=== PATIENT | female | born 1955 | race Caucasian/White ===

== ENCOUNTER 2018-05-14 08:13 | Inpatient (IN) | payer OTHER ==
[~2018-05-14] VITALS: Ht 152.4 cm; Wt 61.4 kg
[~2018-05-14 08:13] MED LIST: ALBU1AER9; HYDUNK; PROM25TA PO; TIOTCAP INH; ZCRUNK
[2018-05-14] MEDS ORDERED: ALBUT/IPRATROP 3MG/0.5MG NEB 3 ML VIAL INH STA ×3 (08:31→09:54)
[2018-05-14] MEDS ORDERED: METHYLPREDNISOLONE 125 MG VIAL IV STA (08:31)
[2018-05-14 08:42] LABS: BASO % 0.2 %; BASO ABS # 0.03 K/uL (0-0.2); EOS % 0.3 %; EOS ABS # 0.04 K/uL (0-0.5); HEMATOCRIT 47.1 % (37-47); IG# 0.04 K/uL (0.00-0.02); LYMPH % 9.1 %; LYMPH ABS # 1.34 K/uL (1.2-3.4); MEAN CELL VOLUME 93.3 fL (80-100); MEAN CORPUSCULAR HEMOGLOBIN 31.7 pg (25-34); MEAN PLATELET VOLUME 10.1 fL (7.4-10.4); MONO % 6.6 %; MONO ABS # 0.97 K/uL (0.11-0.59); NEUT % 83.5 %; NEUT ABS # 12.35 K/uL (1.4-6.5); PLATELET COUNT 200 K/uL (130-400); RED CELL DISTRIBUTION WIDTH CV 13.1 % (11.5-14.5); RED CELL DISTRIBUTION WIDTH SD 44.7 fL (36.4-46.3); WHITE BLOOD COUNT 14.77 K/uL (4.8-10.8)
--- NOTE | 2018-05-14 08:59 | DIAGNOSTIC IMAGING REPORT ---
CHEST ONE VIEW PORTABLE CLINICAL HISTORY: EVALUATE RESPIRATORY DISTRESS.DYSPNEA COMPARISON STUDY: No previous studies for comparison. FINDINGS: No significant cardiac enlargement. Diaphragms smooth. Mild bronchovascular prominence. Mild emphysematous change. IMPRESSION: Mild emphysematous change. Mild bronchovascular prominence. No focal infiltrate. The above report was generated using voice recognition software. It may contain grammatical, syntax or spelling errors. Electronically signed by: Mick Drake M.D. 05/14/2018 8:58 AM Dictated Date/Time: 05/14/2018 8:57 AM
[2018-05-14 09:05] LABS: ALBUMIN 4.2 gm/dl (3.4-5.0); ALKALINE PHOSPHATASE 107 U/L (45-117); ALT/SGPT 24 U/L (12-78); AST/SGOT 30 U/L (15-37); BLOOD UREA NITROGEN 9 mg/dl (7-18); CALCIUM 9.4 mg/dl (8.5-10.1); CARBON DIOXIDE 51 mmol/L (21-32); CREATININE 0.47 mg/dl (0.60-1.20); GLUCOSE 122 mg/dl (70-99); POTASSIUM 3.5 mmol/L (3.5-5.1); SODIUM 140 mmol/L (136-145); TOTAL PROTEIN 7.9 gm/dl (6.4-8.2)
[2018-05-14] MEDS ORDERED: VNTHFA/IN INH (09:23)
[2018-05-14] MEDS ORDERED: ATOR10TA82 PO (09:23)
[2018-05-14] MEDS ORDERED: IPRA1AER2 INH (09:23)
[2018-05-14] MEDS ORDERED: SPRIN/30 INH (09:23)
[2018-05-14] MEDS ORDERED: HYDR25TA4 PO (09:23)
[2018-05-14] MEDS ORDERED: CEFTRIAXONE SOD INJ 1 GM ADDVIAL IV STA (09:54)
[2018-05-14 10:00] VITALS: O2SAT 96; Ht 152.4 cm; Wt 61.4 kg
--- NOTE | 2018-05-14 10:57 | History and Physical ---
History & Physical Date & Time of Service: May 14, 2018 at 10:57 Chief Complaint: Respiratory Distress Primary Care Physician: No Doctor, Assigned History of Present Illness Source: patient 62 yo female who came in the hospital with a week long history of worsening SOB on exertion and at rest. This is accompanied by productive white sputum, subjective fever, and chills. Patient reports that over course of past few days her shortness of breath has worsened. The patient states that she wears 3.5 L of oxygen and has a history of COPD. She states that she has smoked 1-2 ppd for decades but recently has been cutting back. She is currently on the first few days of the nicotine patch. She states that she in non compliant with her medicine and she does not have a PCP. She goes to [facility] on [address] and she only picks up her cholesterol meds and blood pressure meds. Patient reports that she has sick contacts, because someone at home is always sick. Her family is also concerned about her left breast which has an inverted nipple and they mention that they feel something there. They would like this to get looked at. Family also notices that patient has a decreased appetite and has had unintentional weight loss. Past Medical/Surgical History Medical Problems: (1) Asthma (2) COPD (chronic obstructive pulmonary disease) (3) Emphysema lung Family History Cancer Diabetes mellitus FH: breast cancer Gallbladder disease Heart disease Hypertension Social History Smoking Status: Former Smoker Housing status: lives alone Immunizations History of Influenza Vaccine: Unknown History of Tetanus Vaccine?: Unknown History of Pneumococcal: Unknown History of Hepatitis B Vaccine: Unknown Allergies Coded Allergies: Penicillins (Verified Allergy, Unknown, ., 05/15/18) Home Medications Scheduled Atorvastatin (Lipitor), 10 MG PO DAILY Doxycycline Hyclate (Doxycycline Hyclate), 100 MG PO BID Hydrochlorothiazide (Hctz), 25 MG PO DAILY Nicotine (Nicoderm Cq 7 Mg Patch), 7 MG TD DAILY Nicotine (Nicoderm Cq 14MG Patch), 1 PATCH TD DAILY Prednisone (Prednisone), 40 MG PO DAILY Tiotropium [place] (Spiriva Handihaler), 1 CAP INH DAILY Scheduled PRN Albuterol Hfa (Ventolin Hfa), 2-4 PUFFS INH QID PRN for SOB/Wheezing Guaifenesin-Codeine (Codeine/Guaifenesin 100-10 mg/5Ml), 10 ML PO Q6 PRN for Cough Ipratropium-Albuterol (Combivent Respimat), 1 PUFFS INH QID PRN for Shortness of Breath Review of Systems Constitutional: + fever Eyes: No worsening of vision ENT: No hearing loss Respiratory: + cough, + sputum, + wheezing Cardiovascular: No chest pain Abdomen: No pain Musculoskeletal: No joint pain Genitourinary - Female: No dysuria Neurologic: No memory loss Psychiatric: No depression symptoms Endocrine: + fatigue Hematologic / Lymphatic: No abnormal bleeding/bruising Integumentary: No rash Allergic / Immunologic: No environmental allergies Physical Exam Vital Signs Date Time Temp Pulse Resp B/P (MAP) Pulse Ox O2 Delivery O2 Flow Rate FiO2 05/14/18 10:01 114 20 148/69 99 Nebulizer 05/14/18 10:00 96 Nasal Cannula 3.0 05/14/18 09:14 112 20 147/79 99 Nebulizer 05/14/18 08:55 107 20 153/71 100 Room Air 05/14/18 08:46 111 05/14/18 08:39 96 Nasal Cannula 3.0 05/14/18 08:23 89 Room Air 05/14/18 08:23 36.9 113 22 159/79 89 Room Air 05/14/18 08:23 89 Room Air General Appearance: WD/WN, no apparent distress, + pertinent finding (oon nasal cannula) Head: normocephalic, atraumatic Eyes: normal inspection ENT: normal ENT inspection Neck: supple, no adenopathy Respiratory/Chest: chest non-tender, + decreased breath sounds, + accessory muscle use, + pertinent finding (Left breast has a palpable mass which is significant, takes about half of breast, with inverted nipple.) Cardiovascular: no edema, no murmur, + tachycardia Abdomen/GI: normal bowel sounds, non tender, soft Back: normal inspection, no muscle spasm Extremities/Musculoskelatal: normal inspection, no calf tenderness Neurologic/Psych: alert, oriented x 3 Skin: normal color Diagnostics Laboratory Results Results Past 24 Hours Test 05/14/18 08:20 05/14/18 09:05 05/14/18 09:20 Range/Units White Blood Count 14.77 4.8-10.8 K/uL Red Blood Count 5.05 4.2-5.4 M/uL Hemoglobin 16.0 12.0-16.0 g/dL Hematocrit 47.1 37-47 % Mean Corpuscular Volume 93.3 80-100 fL Mean Corpuscular Hemoglobin 31.7 25-34 pg Mean Corpuscular Hemoglobin Concent 34.0 32-36 g/dl Platelet Count 200 130-400 K/uL Mean Platelet Volume 10.1 7.4-10.4 fL Neutrophils (%) (Auto) 83.5 % Lymphocytes (%) (Auto) 9.1 % Monocytes (%) (Auto) 6.6 % Eosinophils (%) (Auto) 0.3 % Basophils (%) (Auto) 0.2 % Neutrophils # (Auto) 12.35 1.4-6.5 K/uL Lymphocytes # (Auto) 1.34 1.2-3.4 K/uL Monocytes # (Auto) 0.97 0.11-0.59 K/uL Eosinophils # (Auto) 0.04 0-0.5 K/uL Basophils # (Auto) 0.03 0-0.2 K/uL RDW Standard Deviation 44.7 36.4-46.3 fL RDW Coefficient of Variation 13.1 11.5-14.5 % Immature Granulocyte % (Auto) 0.3 % Immature Granulocyte # (Auto) 0.04 0.00-0.02 K/uL Sodium Level 140 136-145 mmol/L Potassium Level 3.5 3.5-5.1 mmol/L Chloride Level 89 98-107 mmol/L Carbon Dioxide Level 51 21-32 mmol/L Anion Gap -1.0 3-11 mmol/L Blood Urea Nitrogen 9 7-18 mg/dl Creatinine 0.47 0.60-1.20 mg/dl Est Creatinine Clear Calc Drug Dose 97.9 ml/min Estimated GFR () 121.0 Estimated GFR (Non- 104.4 BUN/Creatinine Ratio 19.6 10-20 Random Glucose 122 70-99 mg/dl Calcium Level 9.4 8.5-10.1 mg/dl Total Bilirubin 0.6 0.2-1 mg/dl Aspartate Amino Transf (AST/SGOT) 30 15-37 U/L Alanine Aminotransferase (ALT/SGPT) 24 12-78 U/L Alkaline Phosphatase 107 45-117 U/L Total Creatine Kinase 130 26-192 U/L Creatine Kinase MB 5.0 0.5-3.6 ng/ml Creatine Kinase MB Ratio 3.8 0-3.0 Troponin I < 0.015 0-0.045 ng/ml Pro-B-Type Natriuretic Peptide 83 0-900 pg/ml Total Protein 7.9 6.4-8.2 gm/dl Albumin 4.2 3.4-5.0 gm/dl Globulin 3.7 2.5-4.0 gm/dl Albumin/Globulin Ratio 1.1 0.9-2 Urine Color YELLOW Urine Appearance TURBID CLEAR Urine pH 7.5 4.5-7.5 Urine Specific [place] 1.014 1.000-1.030 Urine Protein TRACE NEG Urine Glucose (UA) NEG NEG Urine Ketones 2+ NEG Urine Occult Blood TRACE NEG Urine Nitrite POS NEG Urine Bilirubin NEG NEG Urine Urobilinogen NEG NEG Urine Leukocyte Esterase MODERATE NEG Urine WBC (Auto) >30 0-5 /hpf Urine RBC (Auto) 0-4 0-4 /hpf Urine Hyaline Casts (Auto) 5-10 0-5 /lpf Urine Epithelial Cells (Auto) >30 0-5 /lpf Urine Bacteria (Auto) 4+ NEG Venous Blood pH 7.32 7.36-7.41 Venous Blood Partial Pressure CO2 102 38.0-50.0 mmHg Venous Blood Partial Pressure O2 71 mmHg Venous Blood HCO3 51 mmol/L Venous Blood Oxygen Saturation 93.0 % Venous Blood Base Excess 18.8 mEq/L Diagnostic Radiology CHEST ONE VIEW PORTABLE CLINICAL HISTORY: EVALUATE RESPIRATORY DISTRESS.DYSPNEA COMPARISON STUDY: No previous studies for comparison. FINDINGS: No significant cardiac enlargement. Diaphragms smooth. Mild bronchovascular prominence. Mild emphysematous change. IMPRESSION: Mild emphysematous change. Mild bronchovascular prominence. No focal infiltrate. EKG Sinus tachycardia Otherwise normal ECG No previous ECGs available Confirmed by SHAQUILLE VEE ([id number]) on 05/15/2018 5:53:00 AM Impression Assessment and Plan COPD exacerbation in a 62 yo female who with significant history of smoking and is noncompliant with medicine and does not regularly followup with a PCP. 1. COPD exacerbation Due to QTc, place on doxy and ceftriaxone. on nicotine patch, will start 21 mg of nicotine patches in AM. Will place patient on nebs treatment and long acting beta agonist also will start steroids 2.Left breast mass and weight loss likely malignant will try to obtain ultrasound. will likely consult Dr. Hubbard tomorrow for an opinion Given exam and lack of followup as well as history of weight loss, concern over malignancy likely need breast biopsy. 3. HTN: will cotninue home meds 4. dyslipidemia. will continue home meds. 5. DVT lovenox Advanced Directives Existing Living Will: No Existing Power of Mail Deliverer: No Resuscitation Status VTE Prophylaxis Will order VTE Prophylaxis: Yes
[2018-05-14] MEDS ORDERED: PNEUMOCOCCAL POLYSACCHARIDES 25 MCG/0.5 ML VIAL/SYR IM. ONE (11:45)
[2018-05-14] MEDS ORDERED: DOXYCYCLINE HYCLATE 100 MG CAP PO STA (11:58)
[2018-05-14 13:00] VITALS: BP 155/71; PULSE 108; TEMP 36.7; O2SAT 95
[2018-05-14] MEDS ORDERED: PNEUMOCOCCAL ADMINISTRATION CHARGE ONE (13:45)
[2018-05-14] MEDS ORDERED: DOXYCYCLINE HYCLATE 100 MG CAP PO ONE (14:00)
--- NOTE | 2018-05-14 14:10 | EMERGENCY ROOM VISIT NOTE ---
History Report prepared by Praveen: Yue Ramirez Under the Supervision of: Dr. Chuy Silva M.D. First contact with patient: 08:25 Chief Complaint: SHORTNESS OF BREATH Stated Complaint: RESPIRATORY DISTRESS Nursing Triage Summary: patient reports she has a hx of COPD. I have not been taking my meds for the past several weeks. breathing has been more difficult. patient given a duoneb enroute History of Present Illness The patient is a 62 year old female who presents to the Emergency Room with complaints of shortness of breath beginning 2 days ago. The patient states that she wears 3.5 L of oxygen and has a history of breathing problems. The patient reports wearing a nicotine patch and she states that she has not had a cigarette in a while. The patient states that she uses nebulizers but that she ran out of her medications a couple of weeks ago. She states that she normally uses her nebulizer 4 times per day. She reports that she has been unable to lay flat for a couple of weeks secondary to her shortness of breath. The patient denies a history of hypertension but reports a history of COPD, emphysema, and asthma. She states that she takes hydrochlorothiazide but that she has not taken it in a couple of months. The patient reports that she has an appointment coming up on May 30 with her [facility] physician. Pt denies LOC, headache, nausea, vomiting, abdominal pain, back pain, or other complaints. Source of History: patient Onset: 2 days ago Position: chest Quality: other (shortness of breath ) Modifying Factors (Worsening): other (laying flat) Associated Symptoms: No nausea Review of Systems See HPI for pertinent positives and negatives. A total of ten systems were reviewed and were otherwise negative. Past Medical & Surgical Medical Problems: (1) Asthma (2) COPD (chronic obstructive pulmonary disease) (3) COPD exacerbation (4) Emphysema lung Family History Cancer Diabetes mellitus FH: breast cancer Gallbladder disease Heart disease Hypertension Social History Smoking Status: Former Smoker Marital Status: Current/Historical Medications Scheduled Atorvastatin (Lipitor), 10 MG PO DAILY Hydrochlorothiazide (Hctz), 25 MG PO DAILY Ipratropium-Albuterol (Combivent Respimat), 1 PUFFS INH QID Tiotropium [place] (Spiriva Handihaler), 1 CAP INH DAILY Scheduled PRN Albuterol Hfa (Ventolin Hfa), 2-4 PUFFS INH QID PRN for SOB/Wheezing Allergies Uncoded Allergies: PCN (Allergy, Unknown, 11/22/02) Physical Exam Vital Signs Date Time Temp Pulse Resp B/P (MAP) Pulse Ox O2 Delivery O2 Flow Rate FiO2 05/14/18 11:09 109 18 130/70 93 Nasal Cannula 3.0 05/14/18 10:01 114 20 148/69 99 Nebulizer 05/14/18 10:00 96 Nasal Cannula 3.0 05/14/18 09:14 112 20 147/79 99 Nebulizer 05/14/18 08:55 107 20 153/71 100 Room Air 05/14/18 08:46 111 05/14/18 08:39 96 Nasal Cannula 3.0 05/14/18 08:23 89 Room Air 05/14/18 08:23 36.9 113 22 159/79 89 Room Air 05/14/18 08:23 89 Room Air Physical Exam GENERAL: Awake, alert, well-appearing, in no distress HENT: Normocephalic, atraumatic. Oropharynx unremarkable. EYES: Normal conjunctiva. Sclera non-icteric. NECK: Supple. No nuchal rigidity. FROM. No masses. RESPIRATORY: Diminished breath sounds throughout. Increased respiratory effort. CARDIAC: Tachycardic rate. Normal rhythm. No murmurs. No rubs. Extremities warm and well perfused. Pulses equal. No JVD. GI: Soft, non-distended. No tenderness to palpation. No rebound or guarding. No masses. RECTAL: Deferred. MUSCULOSKELETAL: Atraumatic. Chest examination reveals no tenderness. The back is symmetrical on inspection without obvious abnormality. There is no CVA tenderness to palpation. No joint edema. LOWER EXTREMITIES: Calves are equal size bilaterally and non-tender. Trace pedal edema. No discoloration. NEURO: Normal sensorium. No sensory or motor deficits noted. SKIN: No rash or jaundice noted. Medical Decision & Procedures ER Provider Diagnostic Interpretation: Radiology results as stated below per my review and radiologist interpretation: CHEST ONE VIEW PORTABLE CLINICAL HISTORY: EVALUATE RESPIRATORY DISTRESS.DYSPNEA COMPARISON STUDY: No previous studies for comparison. FINDINGS: No significant cardiac enlargement. Diaphragms smooth. Mild bronchovascular prominence. Mild emphysematous change. IMPRESSION: Mild emphysematous change. Mild bronchovascular prominence. No focal infiltrate. The above report was generated using voice recognition software. It may contain grammatical, syntax or spelling errors. Electronically signed by: Mick Drake M.D. 05/14/2018 8:58 AM Dictated Date/Time: 05/14/2018 8:57 AM Laboratory Results 05/14/18 08:20 Red Blood Count 5.05, Mean Corpuscular Volume 93.3, Mean Corpuscular Hemoglobin 31.7, Mean Corpuscular Hemoglobin Concent 34.0, Mean Platelet Volume 10.1, Neutrophils (%) (Auto) 83.5, Lymphocytes (%) (Auto) 9.1, Monocytes (%) (Auto) 6.6, Eosinophils (%) (Auto) 0.3, Basophils (%) (Auto) 0.2, Neutrophils # (Auto) 12.35, Lymphocytes # (Auto) 1.34, Monocytes # (Auto) 0.97, Eosinophils # (Auto) 0.04, Basophils # (Auto) 0.03 05/14/18 08:20 Test 05/14/18 08:20 05/14/18 09:05 05/14/18 09:20 White Blood Count 14.77 K/uL (4.8-10.8) Red Blood Count 5.05 M/uL (4.2-5.4) Hemoglobin 16.0 g/dL (12.0-16.0) Hematocrit 47.1 % (37-47) Mean Corpuscular Volume 93.3 fL (80-100) Mean Corpuscular Hemoglobin 31.7 pg (25-34) Mean Corpuscular Hemoglobin Concent 34.0 g/dl (32-36) Platelet Count 200 K/uL (130-400) Mean Platelet Volume 10.1 fL (7.4-10.4) Neutrophils (%) (Auto) 83.5 % Lymphocytes (%) (Auto) 9.1 % Monocytes (%) (Auto) 6.6 % Eosinophils (%) (Auto) 0.3 % Basophils (%) (Auto) 0.2 % Neutrophils # (Auto) 12.35 K/uL (1.4-6.5) Lymphocytes # (Auto) 1.34 K/uL (1.2-3.4) Monocytes # (Auto) 0.97 K/uL (0.11-0.59) Eosinophils # (Auto) 0.04 K/uL (0-0.5) Basophils # (Auto) 0.03 K/uL (0-0.2) RDW Standard Deviation 44.7 fL (36.4-46.3) RDW Coefficient of Variation 13.1 % (11.5-14.5) Immature Granulocyte % (Auto) 0.3 % Immature Granulocyte # (Auto) 0.04 K/uL (0.00-0.02) Anion Gap -1.0 mmol/L (3-11) Est Creatinine Clear Calc Drug Dose 97.9 ml/min Estimated GFR () 121.0 Estimated GFR (Non- 104.4 BUN/Creatinine Ratio 19.6 (10-20) Calcium Level 9.4 mg/dl (8.5-10.1) Total Bilirubin 0.6 mg/dl (0.2-1) Aspartate Amino Transf (AST/SGOT) 30 U/L (15-37) Alanine Aminotransferase (ALT/SGPT) 24 U/L (12-78) Alkaline Phosphatase 107 U/L (45-117) Total Creatine Kinase 130 U/L (26-192) Creatine Kinase MB 5.0 ng/ml (0.5-3.6) Creatine Kinase MB Ratio 3.8 (0-3.0) Troponin I < 0.015 ng/ml (0-0.045) Pro-B-Type Natriuretic Peptide 83 pg/ml (0-900) Total Protein 7.9 gm/dl (6.4-8.2) Albumin 4.2 gm/dl (3.4-5.0) Globulin 3.7 gm/dl (2.5-4.0) Albumin/Globulin Ratio 1.1 (0.9-2) Urine Color YELLOW Urine Appearance TURBID (CLEAR) Urine pH 7.5 (4.5-7.5) Urine Specific [place] 1.014 (1.000-1.030) Urine Protein TRACE (NEG) Urine Glucose (UA) NEG (NEG) Urine Ketones 2+ (NEG) Urine Occult Blood TRACE (NEG) Urine Nitrite POS (NEG) Urine Bilirubin NEG (NEG) Urine Urobilinogen NEG (NEG) Urine Leukocyte Esterase MODERATE (NEG) Urine WBC (Auto) >30 /hpf (0-5) Urine RBC (Auto) 0-4 /hpf (0-4) Urine Hyaline Casts (Auto) 5-10 /lpf (0-5) Urine Epithelial Cells (Auto) >30 /lpf (0-5) Urine Bacteria (Auto) 4+ (NEG) Venous Blood pH 7.32 (7.36-7.41) Venous Blood Partial Pressure CO2 102 mmHg (38.0-50.0) Venous Blood Partial Pressure O2 71 mmHg Venous Blood HCO3 51 mmol/L Venous Blood Oxygen Saturation 93.0 % Venous Blood Base Excess 18.8 mEq/L Laboratory results reviewed by me Medications Administered Medications (Trade) Dose Ordered Sig/Delfin Route Start Time Stop Time Status Last Admin Dose Admin Albuterol/ Ipratropium (Duoneb) 3 ml NOW STAT INH 05/14/18 08:31 05/14/18 08:33 DC 05/14/18 08:56 3 ML Methylprednisolone Sodium Succinate (Solu-Medrol IV) 125 mg NOW STAT IV 05/14/18 08:31 05/14/18 08:33 DC 05/14/18 08:56 125 MG Albuterol/ Ipratropium (Duoneb) 3 ml NOW STAT INH 05/14/18 09:07 05/14/18 09:08 DC 05/14/18 09:14 3 ML Albuterol/ Ipratropium (Duoneb) 3 ml NOW STAT INH 05/14/18 09:54 05/14/18 09:55 DC 05/14/18 10:03 3 ML Ceftriaxone Sodium (Rocephin Inj) 1 gm NOW STAT IV 05/14/18 09:54 05/14/18 09:55 DC 05/14/18 10:04 1 GM ECG Per My Interpretation Indication: SOB/dyspnea Rate (beats per minute): 110 Rhythm: sinus tachycardia Findings: other (no ST elevations, no ST depression, no PACs, no PVCs) ED Course 30: The patient was evaluated in room A2. A complete history and physical exam was performed. 0831: Ordered Methylprednisolone Sodium Succinate 125 mg IV, Duoneb 3 ml INH. 0907: Ordered Duoneb 3 ml INH. 0910: [facility] spoke with the patient. 0950: I reevaluated the patient. 0954: Ordered Rocephin Inj 1 gm IV, Duoneb 3 ml INH. 1025: Upon reexamination, the patient was resting. I discussed the test results and treatment plan with the patient and her daughter. Her daughter raised concern that the patient has been dealing with some asymmetry of her breasts. Her daughter reports that there is a family history of breast cancer and that the patient has been reluctant to go to the doctor. The hospital will run tests for breast cancer. The patient will be evaluated for further management by Dr. Vera. Medical Decision Prior records/ancillary studies reviewed. Triage Nursing notes reviewed and agree them. Additional history obtained from the family. The patient's history was concerning for shortness of breath. Differential diagnosis: Etiologies such as pneumonia, COPD, reactive airway disease, CHF, cardiac ischemia, pulmonary embolism, pneumothorax, musculoskeletal, infections, gastrointestinal, as well as others were entertained. Physical examination: As above. Increased work of breathing. ER treatment provided: DuoNeb IV Solu-Medrol Omental oxygen On reassessment the patient felt better. Additional DuoNeb treatment IV Rocephin Diagnostic interpretation by me: The electrocardiogram was negative for pathologic change. The labs revealed a mild leukocytosis on CBC. Chemistry panel revealed significant elevation of the patient's CO2. The patient's VBG revealed significant hypercarbia. Cardiac markers negative. Urinalysis concerning for infection. Imaging studies: Chest x-ray as above. Consultation: A consultation was placed with the hospitalist. The case was discussed and diagnostics were reviewed. The patient was evaluated in the ER for further treatment. After internal medicine consultation the patient's daughter noted that the patient was having some changes in her breast, most notably asymmetry. There is a family history of breast cancer. She states the patient has been reluctant to pursue this. I did pass this information on to internal medicine who will further evaluate the problem. Medication Reconcilliation Current Medication List: was personally reviewed by me Blood Pressure Screening Patient's blood pressure: Elevated blood pressure monitored by hospitalist Consults Time Called: 1020 Consulting Physician: Dr. [facility] Returned Call: 1025 Discussed the patient's case. The patient will be evaluated for further treatment and disposition. Impression Primary Impression: Respiratory failure Additional Impressions: Hypercarbia COPD exacerbation UTI (urinary tract infection) Scribe Attestation The scribe's documentation has been prepared under my direction and personally reviewed by me in its entirety. I confirm that the note above accurately reflects all work, treatment, procedures, and medical decision making performed by me. Departure Information Dispostion Being Evaluated By Hospitalist Referrals No Doctor, Assigned (PCP) Patient Instructions My [facility] Problem Qualifiers
[2018-05-14] MEDS: ENOXAPARIN 40 MG/0.4 ML SYR SC SCH (15:30)
[2018-05-14 15:53] VITALS: BP 132/64; PULSE 105; TEMP 36.8; O2SAT 99
[2018-05-14 16:00] VITALS: O2SAT 99
[2018-05-14 19:34] VITALS: BP 155/71; PULSE 107; TEMP 36.6; O2SAT 96
[2018-05-14] MEDS: SALMETEROL XINAFOATE 50MCG 28 BLISTER INH INH SCH (21:00)
[2018-05-14] MEDS: METHYLPREDNISOLONE IV 40 MG in SYRINGE 0 ML IV SCH (21:01)
[2018-05-14] MEDS: DOXYCYCLINE HYCLATE 100 MG CAP PO SCH (21:02)
[2018-05-14 23:31] VITALS: BP 133/66; PULSE 101; TEMP 36.7; O2SAT 96
[2018-05-15] VITALS (8 sets, daily range): BP systolic 116–144; BP diastolic 63–77; PULSE 75–108; TEMP 36.7–36.8; O2SAT 93–97
[2018-05-15] MEDS: LEVALBUTEROL 1.25MG/0.5ML NEB INH PRN ×3 (00:05→11:02)
[2018-05-15] MEDS: NICOTINE 21 MG/24 HR TDSY TD SCH (00:51)
[2018-05-15] MEDS: METHYLPREDNISOLONE IV 40 MG in SYRINGE 0 ML IV SCH ×2 (08:15→20:47)
[2018-05-15] MEDS: HYDROCHLOROTHIAZIDE 25 MG TAB PO SCH (08:15)
[2018-05-15] MEDS: TIOTROPIUM BROMIDE 5 PUFF/90 MCG INH INH SCH (08:15)
[2018-05-15] MEDS: DOXYCYCLINE HYCLATE 100 MG CAP PO SCH ×2 (08:15→20:23)
[2018-05-15] MEDS: SALMETEROL XINAFOATE 50MCG 28 BLISTER INH INH SCH ×2 (08:16→20:22)
[2018-05-15] MEDS: ATORVASTATIN 10 MG TAB PO SCH (08:17)
--- NOTE | 2018-05-15 12:57 | Medical Consult ---
Consultation Date of Consultation: May 15, 2018. Attending Physician: Michael Avelar M.D. Reason for Consultation: Lt breast mass History of Present Illness pt adm with SOB, h/o COPD/ smoking who has a Lt breast mass. Apparently family worried about Lt breast chgs. Pt may have had breast imaging in [place] past 2-3 years. Mother had recent breast sx for cancer at 86 yrs Past Medical/Surgical History Medical Problems: (1) Hypercarbia Status: Acute (2) Respiratory failure Status: Acute (3) UTI (urinary tract infection) Status: Acute Family History Cancer Diabetes mellitus FH: breast cancer Gallbladder disease Heart disease Hypertension Social History Smoking Status: Former Smoker Marital Status: Allergies Coded Allergies: Penicillins (Verified Allergy, Unknown, ., 05/15/18) Current Inpatient Medications Current Inpatient Medications Medications (Trade) Dose Ordered Sig/Delfin Route Start Time Stop Time Status Last Admin Dose Admin Enoxaparin Sodium (Lovenox Inj) 40 mg Q24H SC 05/14/18 15:00 06/13/18 14:59 05/14/18 15:30 40 MG Salmeterol Xinafoate (Serevent Diskus Inh) 1 puffs BID INH 05/14/18 21:00 06/13/18 20:59 Levalbuterol (Xopenex 1.25MG/ 0.5ML Neb) 1.25 mg Q4H PRN INH 05/14/18 11:45 06/13/18 11:44 05/15/18 11:02 1.25 MG Doxycycline Hyclate (Vibramycin Cap) 100 mg BID PO 05/14/18 21:00 05/21/18 20:59 05/15/18 08:15 100 MG Methylprednisolone Sodium Succinate 40 mg/Syringe 0.64 ml @ 1.5 mls/min BID IV 05/14/18 21:00 06/13/18 20:59 05/15/18 08:15 1.5 MLS/MIN Atorvastatin Calcium (Lipitor Tab) 10 mg DAILY PO 05/15/18 09:00 06/14/18 08:59 05/15/18 08:17 10 MG Hydrochlorothiazide (Hydrochlorothiazide Tab) 25 mg DAILY PO 05/15/18 09:00 06/14/18 08:59 05/15/18 08:15 25 MG Tiotropium [place] (Spiriva Handihaler Inhaler) 1 puff DAILY INH 05/15/18 09:00 06/14/18 08:59 05/15/18 08:15 1 PUFF Nicotine (Nicoderm Cq 21MG Patch) 1 patch QAM TD 05/15/18 00:30 06/14/18 00:29 05/15/18 00:51 1 PATCH Miscellaneous (Remove Nicoderm Patch) 1 ea HS N/A 05/15/18 21:00 06/14/18 20:59 Review of Systems Constitutional: No sweats Respiratory: + cough, + sputum, + shortness of breath Cardiovascular: No chest pain Abdomen: No pain Musculoskeletal: No joint pain Genitourinary - Female: No dysuria Neurologic: No memory loss Endocrine: + fatigue Integumentary: No rash Physical Exam Date Time Temp Pulse Resp B/P (MAP) Pulse Ox O2 Delivery O2 Flow Rate FiO2 05/15/18 12:10 36.8 88 18 132/68 (89) 96 05/15/18 07:46 36.8 75 18 136/68 (90) 96 05/15/18 07:30 Nasal Cannula 3.0 05/15/18 05:57 105 20 95 Nasal Cannula 3.0 05/15/18 04:03 36.8 95 24 116/63 (80) 93 Nasal Cannula 3.0 05/15/18 00:10 108 20 96 Nasal Cannula 3.0 05/14/18 23:59 Nasal Cannula 3.0 05/14/18 23:31 36.7 101 20 133/66 (88) 96 Room Air 05/14/18 19:34 36.6 107 18 155/71 (99) 96 Nasal Cannula 3.0 05/14/18 16:00 99 Nasal Cannula 3.0 05/14/18 15:53 36.8 105 16 132/64 (86) 99 Room Air 05/14/18 13:00 36.7 108 18 155/71 (99) 95 Nasal Cannula 2.0 Lt breast with nipple /areola retraction and central mass effect seems mobile General Appearance: no apparent distress Head: atraumatic Eyes: normal inspection Neck: supple Respiratory/Chest: + rales Cardiovascular: regular rate, rhythm Extremities/Musculoskelatal: no pedal edema Neurologic/Psych: alert Assessment & Plan 05/15/18- Pt with Lt breast mass- will need to have imaging at breast center and probable bx , then will decide on need for surgery vs pre op treatment she says she wants to go home prior to going to breast center hopefully we can encourage her to go prior
[2018-05-15] MEDS: ENOXAPARIN 40 MG/0.4 ML SYR SC SCH (15:09)
[2018-05-16 00:05] VITALS: O2SAT 95
--- NOTE | 2018-05-16 06:06 | Progress Note ---
Subjective Date of Service: May 15, 2018. Subjective Pt evaluation today including: conversation w/ patient, physical exam Patient reports that in regards to her breathing, she has improved significantly. Patient reports she is ready to be discharged. Her SOB at rest and cough have improved. However, she is asking for oxygen at home, bedside commode, and hospital bed. She also states that she refused her serevent due to history of "thrush." Patient is asking for her combivent because this medicine really helps. Patient again reports that she does not have a PCP currently but will be seeing a [facility] provider later this month. In regards toher left breast, patient does not want anything done during this hospital stay. Problem List Medical Problems: (1) Hypercarbia Status: Acute (2) Respiratory failure Status: Acute (3) UTI (urinary tract infection) Status: Acute Review of Systems Constitutional: + fever (on admission) Eyes: No worsening of vision ENT: No hearing loss Respiratory: + cough, + sputum, + wheezing Cardiovascular: No chest pain Abdomen: No pain Musculoskeletal: No joint pain Genitourinary - Female: No dysuria Neurologic: No memory loss Psychiatric: No depression symptoms Endocrine: + fatigue Hematologic / Lymphatic: No abnormal bleeding/bruising Integumentary: No rash Allergic / Immunologic: No environmental allergies Objective Vital Signs Date Time Temp Pulse Resp B/P (MAP) Pulse Ox O2 Delivery O2 Flow Rate FiO2 05/16/18 00:05 95 Nasal Cannula 3.0 05/16/18 00:05 95 Nasal Cannula 3.0 05/15/18 23:26 36.7 108 24 144/75 (98) 97 3.0 05/15/18 23:26 36.7 108 24 144/75 (98) 97 Nasal Cannula 3.0 05/15/18 16:20 95 Nasal Cannula 3.0 05/15/18 16:12 36.8 108 19 138/77 (97) 95 Nasal Cannula 3.0 05/15/18 12:10 36.8 88 18 132/68 (89) 96 05/15/18 07:46 36.8 75 18 136/68 (90) 96 05/15/18 07:30 Nasal Cannula 3.0 Physical Exam Comments: General Appearance: WD/WN, no apparent distress, + pertinent finding (on nasal cannula) Head: normocephalic, atraumatic Eyes: normal inspection ENT: normal ENT inspection Neck: supple, no adenopathy Respiratory/Chest: chest non-tender, + improved breath sounds, no accessory muscle use, + pertinent finding (Left breast has a palpable mass which is significant, takes about half of breast, with inverted nipple.) Cardiovascular: no edema, no murmur, + tachycardia Abdomen/GI: normal bowel sounds, non tender, soft Back: normal inspection, no muscle spasm Extremities/Musculoskelatal: normal inspection, no calf tenderness Neurologic/Psych: alert, oriented x 3 Skin: normal color Assessment and Plan COPD exacerbation in a 62 yo female who with significant history of smoking and is noncompliant with medicine and does not regularly followup with a PCP. 1. COPD exacerbation Due to QTc, place on doxy and ceftriaxone. (day 2) on nicotine patch, started 21 mg of nicotine patches in AM. Will place patient on nebs treatment and long acting beta agonist also will continue steroids: at solumedrol 40 mg IV BID. May consider decreasing tomorrow Ordered long acting beta agonist, spent a large portion of interview, explaining that beta agonist do not cause thrush. Luckily patient recalled it was serevent that she took, but advair. 2.Left breast mass and weight loss likely malignant will try to obtain ultrasound, but patient refused. Consulted Dr. Hubbard Given exam and lack of followup as well as history of weight loss, concern over malignancy likely need breast biopsy. This will be done as an outpatient 3. HTN: will continue home meds 4. dyslipidemia. will continue home meds. 5. DVT lovenox Disp: Patient has oxygen at home, but due to fact that she does not have a PCP, she cannot get more oxygen tanks as these are no longer approved for the patient. Will need to get this approved. Ordered 2 step. Should be done today or tomorrow. Will order a script for bedside commode. Patient had asked for hospital bed, but this will not be approved by insurances , as per family preservation caseworker. anticipate discharge tomorrow on 05-16-18
--- NOTE | 2018-05-16 06:59 | Surgery Progress Note ---
Surgery Progress Note Date of Service May 16, 2018. Subjective improving- possibly home today Objective Vital Signs: Date Time Temp Pulse Resp B/P (MAP) Pulse Ox O2 Delivery O2 Flow Rate FiO2 05/16/18 00:05 95 Nasal Cannula 3.0 05/16/18 00:05 95 Nasal Cannula 3.0 05/15/18 23:26 36.7 108 24 144/75 (98) 97 3.0 05/15/18 23:26 36.7 108 24 144/75 (98) 97 Nasal Cannula 3.0 05/15/18 16:20 95 Nasal Cannula 3.0 05/15/18 16:12 36.8 108 19 138/77 (97) 95 Nasal Cannula 3.0 05/15/18 12:10 36.8 88 18 132/68 (89) 96 05/15/18 07:46 36.8 75 18 136/68 (90) 96 05/15/18 07:30 Nasal Cannula 3.0 General Appearance: no apparent distress Respiratory/Chest: no respiratory distress, + pertinent finding (O2 in place) Assessment & Plan 05/16/18- Lt breast mass- somewhat reluctant to go to breast center- will set up appt as outpt and contact pt and daughter through my office- plan- imaging and bx- prob have pt by oncology also.
[2018-05-16 07:00] VITALS: BP 124/80; PULSE 102; TEMP 36.6; O2SAT 96
[2018-05-16 07:13] VITALS: PULSE 105; O2SAT 96
[2018-05-16] MEDS: LEVALBUTEROL 1.25MG/0.5ML NEB INH PRN (07:13)
[2018-05-16] MEDS: ATORVASTATIN 10 MG TAB PO SCH (07:46)
[2018-05-16] MEDS: SALMETEROL XINAFOATE 50MCG 28 BLISTER INH INH SCH (07:46)
[2018-05-16] MEDS: HYDROCHLOROTHIAZIDE 25 MG TAB PO SCH (07:46)
[2018-05-16] MEDS: NICOTINE 21 MG/24 HR TDSY TD SCH (07:47)
[2018-05-16] MEDS: METHYLPREDNISOLONE IV 40 MG in SYRINGE 0 ML IV SCH (07:51)
[2018-05-16] MEDS: DOXYCYCLINE HYCLATE 100 MG CAP PO SCH (08:31)
[2018-05-16] MEDS: TIOTROPIUM BROMIDE 5 PUFF/90 MCG INH INH SCH (08:31)
[2018-05-16] MEDS ORDERED: PRD10 PO (10:23)
[2018-05-16] MEDS ORDERED: NICO14DI5 TD (10:23)
[2018-05-16] MEDS ORDERED: DXY100 PO (10:23)
[2018-05-16] MEDS ORDERED: NICO7DIS7 TD (10:23)
[2018-05-16] MEDS ORDERED: GUAI1SOL5 PO (10:45)
[2018-05-16] MEDS ORDERED: IPRA1AER2 INH (10:45)
[2018-05-16] MEDS ORDERED: SPRIN/30 INH (10:45)
[2018-05-16] MEDS ORDERED: HYDR25TA4 PO (10:45)
[2018-05-16] MEDS ORDERED: ATOR10TA82 PO (10:45)
[2018-05-16] MEDS ORDERED: VNTHFA/IN INH (10:45)
--- NOTE | 2018-05-16 11:03 | Discharge Instructions ---
Discharge Instructions Date of Service May 16, 2018. Admission Reason for Admission: Copd Exacerbation Discharge Discharge Diagnosis / Problem: COPD exacerbation, breast mass left side Discharge Goals Goal(s): Improve function, Improve disease control, Diagnostic testing (follow up with Dr. Hubbard for evaluation of left breast mass) Activity Recommendations Activity Limitations: resume your previous activity Exercise/Sports Limitations: as tolerated Shower/Bathe: no limitations . Instructions / Follow-Up Instructions / Follow-Up Medications: - PREDNISONE: starting tomorrow morning, take 40mg (4 tablets) in the morning for two days, then 30mg in the morning for two days, then 20mg x 2 days then 10mg x 2 days then stop - DOXYCYCLINE: 100mg twice a day for 11 more doses, next dose due this evening - GUAFFENISINE/CODEINE: use every 6 hours as needed for cough, will also help with pain - NICOTINE PATCH: start at 14mcg patch daily for 14 days, then decrease to 7mcg patch for 14 days then stop, do not smoke while on the nicotine patch Renewed prescriptions for all of your other home medications COPD exacerbation: lung are clear, oxygen levels stable, improving with steroids and antibiotics complete Prednisone taper and 11 more doses of Doxycycline use your Combivent, Albuterol and Spiriva as prescribed use the Nicotine patch to stop smoking which will improve lung function further oxygen is 2L at all times follow up with Gala MUNOZ [phone] Left breast mass: ultimately you need a biopsy to make the diagnosis Dr Hubbard's office will contact you for an appointment, please follow up his office number is [phone] YOU NEED TO FOLLOW UP WITH GALA PAREDES WELL DR HUBBARD TO TREAT BOTH YOUR COPD AND BREAST MASS, FAILING TO FOLLOW UP WITH ONLY FURTHER COMPLICATE YOUR CONDITIONS Current Hospital Diet Patient's current hospital diet: Regular Diet Discharge Diet Recommended Diet: Regular Diet Pending Studies Studies pending at discharge: no Medical Emergencies . Who to Call and When: Medical Emergencies: If at any time you feel your situation is an emergency, please call 911 immediately. . Non-Emergent Contact Non-Emergency issues call your: Primary Care Provider, Surgeon (Dr. Hubbard) Call Non-Emergent contact if: you have any medication questions . . "Provider Documentation" section prepared by Tobias Martinez. . [place] Drug Monitoring Program Search Results: no issues identified
[2018-05-16] MEDS: ENOXAPARIN 40 MG/0.4 ML SYR SC SCH (14:43)
[2018-05-16 15:20] VITALS: BP 124/80; PULSE 105; TEMP 36.6; O2SAT 96
--- NOTE | 2018-05-18 08:23 | Discharge Summary ---
Discharge Summary Date of Service May 16, 2018. Discharge Summary Admission Date: May 14, 2018 at 11:48 Discharge Date: May 16, 2018 Discharge Disposition: Home with services Principal Diagnosis: COPD exacerbation Problems/Secondary Diagnoses: Acute and chronic respiratory failure Tobacco abuse Left breast mass Immunizations: Have You Had Influenza Vaccine: Unknown History of Tetanus Vaccine?: Unknown History of Pneumococcal: Unknown History of Hepatitis B Vaccine: Unknown Procedures: none Consultations: General surgery - Dr. Hubbard Medication Reconciliation New Medications: Guaifenesin-Codeine (Codeine/Guaifenesin 100-10 mg/5Ml) 1 Marni Marni 10 ML PO Q6 PRN for Cough, #240 ML 0 Refills Nicotine (Nicoderm Cq 7 Mg Patch) 7 Mg/24 Hr Dis 7 MG TD DAILY for 14 Days, #14 PATCH Nicotine (Nicoderm Cq 14MG Patch) 14 Mg/24 Hr Dis 1 PATCH TD DAILY for 14 Days, #14 PATCH Prednisone (Prednisone) 10 Mg Tab 40 MG PO DAILY for 8 Days, #20 TABS 0 Refills taper: 40mg (4 tablets) daily x 2 days then 30mg x 2 days then 20mg x 2 days then 10mg x 2 days and stop Doxycycline Hyclate (Doxycycline Hyclate) 100 Mg Cap 100 MG PO BID, #11 CAP 0 Refills Changed Medications: Ipratropium-Albuterol (Combivent Respimat) 1 Aer Aer 1 PUFFS INH QID PRN for Shortness of Breath, #1 INHALER 5 Refills (Changed from : Refills: ) Continued Medications: Albuterol Hfa (Ventolin Hfa) 200 Puffs/22887 Mcg Aers 2-4 PUFFS INH QID PRN for SOB/Wheezing, #1 INHALER 5 Refills (This prescription has been renewed) Atorvastatin (Lipitor) 10 Mg Tab 10 MG PO DAILY, #30 TABS 5 Refills (This prescription has been renewed) Hydrochlorothiazide (Hctz) 25 Mg Tab 25 MG PO DAILY, #30 TABS 5 Refills (This prescription has been renewed) Tiotropium [place] (Spiriva Handihaler) 30 Puff/540 Mcg Aerp 1 CAP INH DAILY, #1 INHALER 5 Refills (This prescription has been renewed) Discharge Exam Patient breathing better, asking to go home, says that her breathing is close to baseline. Long discussion with patient and her son at the bedside. Discussed discharge plans for her oxygen, had to get supplemental oxygen arranged after two step done in the morning. Long talk about being compliant with her breathing treatments and following up with PCP. Long talk about the left breast mass. Patient said "I don't want anyone to cut me, I don't want surgery at all. I will take chemotherapy or radiation." Discussed with her that she will need a biopsy prior to getting any type of chemotherapy or other treatment. Need to identify what the mass is and if it has spread to distant sites. Her son was very supportive, said he was going to make sure she followed up with both PCP and Dr. Hubbard. Review of Systems: Constitutional: + weakness, No fever, No chills, No sweats, No weight loss, No fatigue, No problem reported Eyes: No worsening of vision, No eye pain, No redness, No discharge, No diplopia, No problem reported ENT: No hearing loss, No unusual epistaxis, No nasal symptoms, No sore throat, No tinnitus, No dental problems, No trouble swallowing, No problem reported Respiratory: + cough, + dyspnea on exertion, No sputum, No wheezing, No shortness of breath, No dyspnea at rest, No hemoptysis, No problem reported Cardiovascular: No chest pain, No orthopnea, No PND, No edema, No claudication, No palpitations, No problem reported Abdomen: No pain, No nausea, No vomiting, No diarrhea, No constipation, No GI bleeding, No problem reported Musculoskeletal: No joint pain, No muscle pain, No swelling, No calf pain, No problem reported Genitourinary - Female: + problem reported (left breast mass), No dysuria, No urinary frequency, No urinary urgency, No urinary incontinence, No urinary retention, No hematuria Neurologic: + weakness, No memory loss, No paralysis, No numbness/tingling, No vertigo, No balance problems, No problem reported Psychiatric: No depression symptoms, No anhedonism, No anxiety, No insomnia , No substance abuse, No problem reported Endocrine: No fatigue, No excessive thirst, No excessive urination, No problem reported Hematologic / Lymphatic: No abnormal bleeding/bruising, No clotting problems , No swollen lymph nodes, No night sweats, No problem reported Integumentary: No rash, No itch, No new/changing skin lesions, No color change, No bleeding, No problem reported Physical Exam: General Appearance: WD/WN, no apparent distress Eyes: normal inspection, EOMI, sclerae normal ENT: normal ENT inspection, hearing grossly normal, pharynx normal Neck: supple, no adenopathy, no JVD, trachea midline Respiratory/Chest: chest non-tender, no respiratory distress, no accessory muscle use, + decreased breath sounds, + wheezing (faint, end exhalation) Cardiovascular: regular rate, rhythm, no edema, no gallop, no JVD, no murmur , normal peripheral pulses Abdomen / GI: normal bowel sounds, non tender, soft, no organomegaly Extremities: normal inspection, no calf tenderness, normal capillary refill , no pedal edema, normal range of motion, pelvis stable Neurologic/Psychiatric: grants and contracts assistant II-XII nml as tested, no motor/sensory deficits , alert, normal mood/affect, normal reflexes, oriented x 3 Skin: normal color, warm/dry, no rash Hospital Course COPD exacerbation: lung are clear, oxygen levels stable, improving with steroids and antibiotics complete Prednisone taper and 11 more doses of Doxycycline discharge on Combivent, Albuterol and Spiriva as prescribed use the Nicotine patch to stop smoking which will improve lung function further oxygen is 2L at all times per two step on day of discharge follow up with Gala MUNOZ [phone] Left breast mass: evaluated by Dr. Hubbard while inpatient he would like to follow up in the office, get mammogram, likely a needle biopsy for diagnosis Tobacco abuse: Nicotine patches provided to use over next 4 weeks HTN: BP stable on home medications Total Time Spent: Greater than 30 minutes This includes examination of the patient, discharge planning, medication reconciliation, and communication with other providers. Discharge Instructions Please refer to the electronic Patient Visit Report (Discharge Instructions) for additional information. Follow-Up Dr. Hubbard in one week Gala MUNOZ in one week Additional Copies To Gala MUNOZ; Antonio Hubbard M.D.
== END 2018-05-16 17:34 | disposition home or self-care (01) | DRG 190 ==
LOC: EDBD 08:13 → C.EDA 08:14 → C.2T 11:48 → CANRESERV 11:58 → ENRESERV 11:58 → C.MS2W 05-15 16:08
PROVIDERS: ADMIT Internal Medicine Sports Medicine; ATTEND Internal Medicine
DX: J44.1 Chronic obstructive pulmonary disease with (acute) exacerbation (principal); J96.22 Acute and chronic respiratory failure with hypercapnia; I10 Essential (primary) hypertension; E78.5 Hyperlipidemia, unspecified; N63.20 Unspecified lump in the left breast, unspecified quadrant; R63.4 Abnormal weight loss; F17.200 Nicotine dependence, unspecified, uncomplicated; Z79.52 Long term (current) use of systemic steroids; Z79.899 Other long term (current) drug therapy; Z99.81 Dependence on supplemental oxygen